=== PATIENT | male | born 1980 | race Caucasian/White ===

== ENCOUNTER 2017-02-08 08:48 | Outpatient (CLI) | payer MEDICARE ==
[2016-02-27 15:41] VITALS: BP 150/92
[2017-02-08 09:33] LABS: eGFR (African) > 60; eGFR (Non-African) > 60
--- NOTE | 2017-02-08 15:25 | Diagnostic Imaging Report ---
FRANCHESKA SANTOS [facility] [address] [facility] [address] [address] Report Submission Date: Feb 08, 2017 1:07:22 PM CDT Patient Study Name: JASON CARDENAS Date: Feb 08, 2017 9:01:00 AM CDT Modality Type: CR Gender: M Description: SPINE : 84 Institution: [facility] Physician: FRANCHESKA SANTOS Lumbar spine - three views Clinical history: Low back pain. Findings: Examination of the lumbar spine in AP, lateral and lateral coned- down views demonstrates narrowing of the L4-5 disc space with osteophyte formation consistent with degenerative disc disease. The pedicles are intact and the paravertebral soft tissues are within normal limits. There is slight posterior displacement of L4 relative to L5. The vertebrae are otherwise anatomically aligned. Impression: 1. Degenerative disc disease at L4-5 with slight posterolisthesis. 2. No fracture. Electronically signed on Feb 08, 2017 1:07:22 PM CDT by: Rogelio CASTELLON
== END 2017-02-08 08:50 ==
LOC: LAB 08:48
PROVIDERS: ATTEND Family Medicine
DX: E03.9 Hypothyroidism, unspecified (principal); E78.2 Mixed hyperlipidemia; M54.5 Low back pain
CPT/HCPCS: 36415; 72100; 80053; 80061; 84443

== ENCOUNTER 2017-04-29 11:50 | Outpatient (CLI) | payer MEDICARE ==
[2016-02-27 15:41] VITALS: BP 150/92
[~2017-04-29 11:50] MED LIST: 0.9 % SODIUM CHLORIDE PF 10 ML VIAL IJ ONE; Lidocaine 1% 5ml(IM or SUTURE)(PAIN CLINIC) ONE; TRIAMCINOLONE ACETONID 40MG/ML VIAL ONE
--- NOTE | 2017-05-02 13:58 | HISTORY AND PHYSICAL REPORT ---
REFERRING PHYSICIAN: Dr. Renetta Javier Dear Renetta: HISTORY OF PRESENT ILLNESS: I had the opportunity of seeing Yovany Denis today as an outpatient at [facility]. As you are aware, Yovany is a very nice 36-year-old white male with a long history of back pain. He says that he has had this bout of back pain for the last couple of years. The pain is now across the low back and down the left leg into the left foot. It has been getting significantly worse. He is having trouble walking and getting out of a chair. He has pain with being on his feet too long and increases over the course of the day. He had a low back injection in [place] a year ago and did give him some short- term relief. The pain returned. He said that the gentleman that he had putting the injection in had some type of problem and that it hurt him a great deal. At this point, he is markedly uncomfortable. He rates the pain as 10 over 10 on the visual analog scale and never better than 5 over 10 on the visual analog scale with the symptoms getting worse. He has had home exercises. He has not had physical therapy. He has been on nonsteroidal antiinflammatories. He has a history of bipolar disorder. His previous MRI which was done at [facility] reveals an L4-L5 retrolisthesis with disk osteophyte degenerative disk disease without severe spinal or neural foraminal stenosis. CURRENT AND PAST MEDICAL PROBLEMS: 1. Gallstones. 2. Headaches. 3. Hypothyroidism. 4. Hyperlipidemia. 5. Degenerative disk disease. 6. Bipolar disorder. 7. Hypertension. 8. Anxiety. 9. Kidney problems. 10. Depression. PAST SURGICAL HISTORY: 1. Appendectomy. 2. Tonsillectomy. CURRENT MEDICATION LIST: 1. Levothyroxine 150 mcg daily. 2. Paroxetine 40 mg b.i.d. 3. Propranolol 60 mg b.i.d. 4. Lamotrigine 200 mg b.i.d. 5. Cyclobenzaprine 10 mg every 8 hours p.r.n. 6. Diclofenac 75 mg b.i.d. 7. Ibuprofen p.r.n. ALLERGIES: Patient reports an allergy to morphine. SOCIAL HISTORY: The patient currently smokes one-half pack of cigarettes per day. He does not report alcohol use. He reports having tried recreational drugs in the past but is not currently using any. Patient has been for 6 years. He has no biological children but lives with his and her 3 children. He has his Bachelor's degree but is not currently employed. He reports disability due to his bipolar disorder. FAMILY HISTORY: Positive for heart attack and diabetes in the patient's father. Diabetes in the patient's mother. REVIEW OF SYSTEMS: Positive for weight gain, night sweats, irregular and fast heartbeats related to anxiety, shortness of breath, depression, anxiety, and headaches. Treatment for the current pain problem includes Diclofenac and ibuprofen use. The patient reports that he had some injections in his low back in [place], [place], about a year ago. He does not remember where he had those done or who did them or what kind of injections they were. He reports that they did provide some short-term pain relief. He has not had physical therapy, chiropractic manipulation, biofeedback, acupuncture, or massage therapy. PHYSICAL EXAMINATION: General: This is a well-nourished, well-developed mild to moderately obese white male in some discomfort. Vital Signs: BP: 134/74, P: 80, R: 20, oxygen saturation is 98% on room air. HEENT: Pupils are equal, round, and reactive to light and accommodation. Extraocular movements intact. No facial droop. Neck: There is full range of motion of the cervical spine. No evidence of adenopathy. Thyroid is nontender, no enlarged. Carotids are without bruits. Chest: Clear to auscultation bilaterally. Normal. Chest excursion. Heart: Regular rate and rhythm without murmur. Abdomen: Benign. Normoactive bowel sounds. Motor/sensory: Intact in the upper and lower extremities. Moves all extremities freely. Back: There is a markedly positive straight leg raise on the left, negative on the right. Strength is 5/5 and equal in the lower extremities. Dorsiflexion and plantar flexion of the feet are intact. Reflexes are 2+ and equal of the patellar tendon and Achilles tendon. ASSESSMENT: 1. Left L5 radiculitis. 2. L4-L5 retrolisthesis with subarticular narrowing. PLAN: Plan for an left L5-S1 epidural steroid injection today under fluoroscopy. cc: Dr. Renetta CASTELLON
--- NOTE | 2017-05-02 14:04 | LESI WITH FLUORO ---
OPERATIVE PROCEDURE: Left L5-S1 epidural steroid injection with fluoroscopic guidance. DESCRIPTION OF PROCEDURE: The risks and benefits were discussed with the patient including the risk of infection, bleeding, nerve injury, and headache, as well as the risks of steroid exposure causing hyperglycemia, hypertension, osteoporosis, or increased infectious risks. The patient understood these risks and agreed to proceed. Consent was obtained prior to the procedure. The patient was placed in the prone position on the fluoroscopy table with a pillow underneath the abdomen to afford anterior flexion of the lumbar spine. The low back was cleaned and a sterile drape was applied. An 18-gauge thin wall Tuohy epidural needle was advanced with normal saline loss of resistance technique and direct fluoroscopic guidance with a left paramedian approach at the L5-S1 level. On obtaining loss of resistance to normal saline, it was verified that there was no aspiration of CSF or blood. Furthermore, the needle tip location was verified with lateral and AP fluoroscopic views. Omnipaque 240 myelogram dye were injected through the epidural needle. The distribution of the dye was noted to be within the desired distribution within the lumbar epidural space. The patient did report some reproduction of the low back and / or lower extremity pain symptoms; this reproduction of symptoms was short- lived. Triamcinolone acetate and 1% lidocaine was injected into the epidural space. The stylet was replaced in the needle and the needle was removed from the back. The patient tolerated the procedure well. The back was cleaned and a bandage was applied over the injection site. The patient was monitored for 20 minutes following the procedure. during this time the vital signs remained stable and the patient experienced no adverse sequelae. The patient was discharged in good condition. ASSESSMENT: Lumbar radiculitis. PLAN: Left L5-S1 epidural steroid injection with fluoroscopic guidance today. FOLLOWUP: Return to clinic if problems develop or worsen. Dr. Javier, thank you very much for allowing me to take part in the care of this nice gentleman. I appreciate the opportunity to take part in the care of your patients. cc: Dr. Renetta CASTELLON
== END 2017-04-29 11:52 ==
LOC: OUT 11:50
PROVIDERS: ATTEND Anesthesiology Pain Medicine
DX: M54.16 Radiculopathy, lumbar region (principal)
CPT/HCPCS: G0463; J3301; Q9966; 62323; 99213

== ENCOUNTER 2017-05-10 19:48 | Emergency (ER) | payer MEDICARE ==
--- NOTE | 2017-05-10 20:08 | ED Physician Documentation ---
Lower Extremity Problem - HISTORIAN Historian: patient - HPI Chief Complaint: Lower Extremity Problem Location of Injury: L leg Onset: days ago (3 ) Timing: still present Recent Injury: No Severity: moderate Quality: pain, tenderness. denies: swelling Exacerbated By: walking Relieved By: rest Associated Symptoms: denies: chest pain, shortness of breath - ROS CONST: no problems - PAST HX Past History: none, other (depression) Surgeries/Procedures: none Immunizations: referred to PCP Allergies/Adverse Reactions: Allergies Allergy/AdvReac Type Severity Reaction Status Date / Time morphine Allergy Intermediate Rash Verified 05/10/17 20:06 Home Medications: Ambulatory Orders Medication Instructions Recorded Naproxen [Naprosyn] 500 mg PO BID #30 tablet 05/10/17 - SOCIAL HX Smoking History: less than 1 pack/day Alcohol Use: none Drug Use: none - FAMILY HX Family History: no significant history - VITAL SIGNS Vital Signs: Vital Signs Temp Pulse Resp BP Pulse Ox 150/92 02/27/16 15:38 - REVIEWED ASSESSMENTS Nursing Assessment Reviewed: Yes Vitals Reviewed: Yes Lower Extremity Problem - EXAM General Appearance: mild distress Knees: bilateral: non-tender, normal inspection, normal range of motion, no evidence of injury Ankle: right: limited range of motion, pain (with walking over achilles tendon) , soft tissue tenderness, left: non-tender, normal inspection, normal range of motion, no evidence of injury, N/A: deformity (none), ecchymosis (none), joint effusion (none) Neuro/Tendon: normal sensation, normal motor functions RESPIRATORY: no resp distress, chest non-tender. No: wheezes, rales, rhonchi NEURO/PSYCH: oriented X3, mood/affect nml SKIN: warm/dry Discharge Clincal Impression: Achilles tendonitis Qualifiers: Laterality: right Qualified Code(s): M76.61 - Achilles tendinitis, right leg Referrals: Renetta Javier MD [Primary Care Provider] - 2 Days Additional Instructions: Try not to walk any more then you need to. Take Naprosyn as directed with food. Try using heal cup. If not better follow-up with your primary care provider. Home Medications: Ambulatory Orders Naproxen [Naprosyn] 500 mg PO BID #30 tablet 05/10/17 Condition: Stable Disposition: 01 HOME, SELF-CARE Decision to Admit: NO Date of Decison to Admit: 05/10/17 Decision Time: 20:10
[2017-05-10 20:32] VITALS: BP 110/72
== END 2017-05-10 20:16 | disposition home or self-care (01) ==
LOC: ED 19:48
DX: M76.61 Achilles tendinitis, right leg (principal)
CPT/HCPCS: 99283

== ENCOUNTER 2017-05-29 13:42 | Emergency (ER) | payer MEDICARE ==
[2017-05-29] MEDS: 0.9 % SODIUM CHLORIDE 1,000 ML IV ONE (14:16)
[2017-05-29 14:20] LABS: APPEARANCE,URINE Cloudy (CLEAR); COLOR,URINE Red (YELLOW); OCCULT BLOOD,URINE 3+ (NEGATIVE); PH URINE 5.5 (5.0 - 8.0)
[2017-05-29 14:24] LABS: BASOPHILS % 1.2 (0.0-1.5); EOSINOPHILS % 5.8 % (0.0-6.8); MEAN CORPUSCULAR HEMOGLOBIN 31.9 pg (28.0-34.0); MEAN CORPUSCULAR VOLUME 92.3 fl (80.0-100.0); MONOCYTES % 7.1 % (0.0-11.0)
[2017-05-29 14:40] LABS: eGFR (African) > 60; eGFR (Non-African) > 60
--- NOTE | 2017-05-29 15:17 | Diagnostic Imaging Report ---
[facility] [address] [facility] [address] [place], [place]. [address] Report Submission Date: May 29, 2017 3:12:24 PM CDT Patient Study Name: JASON CARDENAS Date: May 29, 2017 2:34:10 PM CDT Modality Type: CT\SR Gender: M Description: CT ABD & PELVIS W/O CO : 84 Institution: [facility] Physician: YINKA MIRANDA - ER CT abdomen and pelvis without contrast CLINICAL HISTORY: PT STATES BACK PAIN THAT RADIATES TO HIS GROIN, WORSE ON LEFT SIDE, AND HEMATURIA FOR A FEW DAYS. HISTORY OF KIDNEY STONES. HISTORY OF APPENDECTOMY (Hx) TECHNIQUE: 5 mm contiguous axial images of the abdomen and pelvis non contrast. FINDINGS: There is mild atelectasis in the left lung base. Evaluation is limited without iv contrast. There is diffuse fatty infiltration of liver. There is cholelithiasis. The noncontrast adrenal glands, pancreas, spleen are unremarkable. Nonobstructing right kidney stones. There is mild left hydronephrosis and hydroureter secondary to a 3 mm distal left ureteral calculus. No bladder calculi identified. The bowel loops are nondistended. No ascites. No pneumoperitoneum. Few sigmoid diverticula without diverticulitis. IMPRESSION: 1. Mild left hydronephrosis and hydroureter secondary to a 3 mm distal left ureteral calculus. 2. Nonobstructing right kidney stones. 3. Severe hepatic steatosis. Electronically signed on May 29, 2017 3:12:24 PM CDT by: Edvin CASTELLON
--- NOTE | 2017-05-29 15:17 | ED Physician Documentation ---
General Adult - HISTORIAN Historian: patient - HPI Stated Complaint: blood in urine, L flank pain Chief Complaint: General Adult Onset: days ago (3) Timing: still present Severity: moderate Further Comments: yes (Pt is a 36 yo male with L flank pain that radiates to groin, shelli hematuria, and hx kidney stones that began 3 days ago. Pt has had intermittent waves of severe pain, but is in only mild distress at presentation. No n/v.) - ROS CONST: other (malaise) EYES/ENT: none CVS/RESP: none GI/: abdominal pain, problems urinating MS/SKIN/LYMPH: none - PAST HX Past History: other (Bipolar d/o, Thyroid d/o, chronic low back pain) Surgeries/Procedures: other (Tonsils & Adenoids) Allergies/Adverse Reactions: Allergies Allergy/AdvReac Type Severity Reaction Status Date / Time morphine Allergy Intermediate Rash Verified 05/29/17 14:01 Home Medications: Ambulatory Orders Medication Instructions Recorded Cyclobenzaprine HCl [Flexeril] 10 mg PO TID PRN 05/29/17 Lamotrigine [Lamictal] 200 mg PO BID 05/29/17 Naproxen [Naprosyn] 500 mg PO DAILY 05/29/17 - SOCIAL HX Smoking History: cigarettes Alcohol Use: none - FAMILY HX Family History: No - VITAL SIGNS Vital Signs: Vital Signs Temp Pulse Resp BP Pulse Ox 98.1 F 116 H 18 131/75 94 05/29/17 14:17 05/29/17 14:17 05/29/17 14:17 05/29/17 14:17 05/29/17 14:17 - REVIEWED ASSESSMENTS Nursing Assessment Reviewed: Yes Vitals Reviewed: Yes Progress - Progress Progress: Toradol 30 mg IV NS 1 L IVF Rocephin 1 gm IV in ER. CT abd/pelvis w/o contrast: 1. Mild left hydronephrosis and hydroureter secondary to a 3 mm distal left ureteral calculus. 2. Nonobstructing right kidney stones. 3. Severe hepatic steatosis. Pt instructions: Rx Ketorolac 10 mg. Take one every 6 hrs as needed for pain. Do not take Naproxen, Aspirin or Ibuprofen in the same dosing interval as Ketorolac. Ciprofloxacin 500 mg. Take one every 12 hrs for 7 days. Tamsulosin 0.4 mg. Take one daily for 5 days or until kidney stone passes. Zofran ODT 4 mg. Take one every 8 hrs as needed for nausea/vomiting. Follow up with primary provider about hepatic steatosis (fatty liver) seen on CT scan. ED Results Lab/Radiology - Lab Results Lab Results: Lab Results 05/29/17 05/29/17 05/29/17 14:14 14:14 14:14 WBC 9.00 K/ul K/ul (4.00-12.00) RBC 5.18 M/ul M/ul (3.90-5.20) Hgb 16.5 g/dL g/dL (12.0-18.0) Hct 47.8 % % (37.0-53.0) MCV 92.3 fl fl (80.0-100.0) MCH 31.9 pg pg (28.0-34.0) MCHC 34.5 g/dL g/dL (30.0-36.0) RDW 13.2 % % (11.3-14.3) Plt Count 235 K/mm3 K/mm3 (130-400) Neut % (Auto) 56.0 % % (39.0-79.0) Lymph % (Auto) 28.5 % % (16.0-50.0) George % (Auto) 7.1 % % (0.0-11.0) Eos % (Auto) 5.8 % % (0.0-6.8) Baso % (Auto) 1.2 (0.0-1.5) Neut # (Auto) 5.0 # k/uL # k/uL (1.4-7.7) Lymph # (Auto) 2.6 # k/uL # k/uL (0.6-4.0) George # (Auto) 0.6 # k/uL # k/uL (0.0-0.9) Eos # (Auto) 0.5 # k/uL # k/uL (0.0-0.6) Baso # (Auto) 0.1 # k/uL # k/uL (0.0-0.5) Reactive Lymphs % 1.5 % % (0.0-5.0) Reactive Lymphs # 0.1 # k/uL # k/uL (0.0-0.8) Sodium 140 mmol/L mmol/L (136-145) Potassium 3.7 mmol/L mmol/L (3.5-5.0) Chloride 106 mmol/L mmol/L (98-110) Carbon Dioxide 29 mmol/L mmol/L (20-32) BUN 22 mg/dL mg/dL (10-26) Creatinine 1.1 mg/dL mg/dL (0.4-1.5) Estimated Creat Clear 163 Est GFR ( Amer) > 60 (60 - ) Est GFR (Non-Af Amer) > 60 (60 - ) Glucose 97 mg/dL mg/dL (70-99) Calcium 10.2 mg/dL mg/dL (8.5-10.5) Total Bilirubin 0.5 mg/dL mg/dL (0.2-1.2) AST 28 U/L U/L (0-41) ALT 59 U/L H U/L (0-45) Alkaline Phosphatase 85 U/L U/L (46-116) Total Protein 7.9 g/dL g/dL (6.0-8.5) Albumin 5.2 g/dL g/dL (3.0-5.5) Amylase 33 U/L U/L (20-104) Urine Color Red (YELLOW) Urine Appearance Cloudy (CLEAR) Urine pH 5.5 (5.0 - 8.0) Ur Specific [place] 1.025 (1.010-1.030) Urine Protein 3+ mg/dL H mg/dL (NEGATIVE) Urine Ketones 1+ mg/dL H mg/dL (NEGATIVE) Urine Occult Blood 3+ H (NEGATIVE) Urine Nitrite Positive (NEGATIVE) Urine Bilirubin 2+ H (NEGATIVE) Urine Urobilinogen 2.0 Eu H Eu (0.2-1.0) Ur Leukocyte Esterase 3+ H (NEGATIVE) Urine Glucose Negative mg/dL mg/dL (NEGATIVE) - Orders Orders: ED Orders Category Date Time Status Place IV Lock 1T Care 05/29/17 13:[address] ABD & PELVIS W/O CON Stat Exams 05/29/17 Taken AMYLASE Routine Lab 05/29/17 14:14 Completed CBC/PLATELET/DIFF Routine Lab 05/29/17 14:14 Completed CMP Routine Lab 05/29/17 14:14 Completed URINALYSIS Routine Lab 05/29/17 14:14 Completed URINE CULTURE Routine Lab 05/29/17 14:14 Received 0.9 % Sodium Chloride [Normal Saline] 1,000 ml Med 05/29/17 13:59 Discontinued IV Q1H General Adult Physical Exam - PHYSICAL EXAM GENERAL APPEARANCE: moderate distress EENT: pharynx normal NECK: normal inspection, supple RESPIRATORY: no resp distress CVS: reg rate & rhythm, heart sounds normal ABDOMEN: soft, tenderness (L flank), decreased BS BACK: normal inspection, CVA tenderness (L) SKIN: warm/dry, normal color EXTREMITIES: non-tender, normal range of motion, no evidence of injury NEURO: oriented X3, motor nml, sensation nml Discharge Clincal Impression: Renal calculus or stone Referrals: Renetta Javier MD [Primary Care Provider] - Home Medications: Ambulatory Orders Cyclobenzaprine HCl [Flexeril] 10 mg PO TID PRN 05/29/17 Lamotrigine [Lamictal] 200 mg PO BID 05/29/17 Naproxen [Naprosyn] 500 mg PO DAILY 05/29/17 Condition: Stable Disposition: 01 HOME, SELF-CARE Decision to Admit: NO Decision Time: 15:43
[2017-05-29] MEDS ORDERED: KETOROLAC TROMETHAMINE 30 MG/1ML VIAL ONE (15:18)
[2017-05-29] MEDS ORDERED: 0.9 % SODIUM CHLORIDE 100 ML IV ONE (15:20)
[2017-05-29] MEDS ORDERED: cefTRIAXone SODIUM 1 GM VIAL ONE (15:20)
[2017-05-29] MEDS: KETOROLAC TROMETHAMINE 30 MG/1ML VIAL IVP ONE (15:22)
[2017-05-29] MEDS: cefTRIAXone SODIUM 1 GM in 0.9 % SODIUM CHLORIDE 50 ML IV STA (15:28)
[2017-05-29 16:12] VITALS: BP 126/74
== END 2017-05-29 16:09 | disposition home or self-care (01) ==
LOC: ED 13:42
DX: N20.0 Calculus of kidney (principal)
CPT/HCPCS: 74176; 80053; 81002; 82150; 85025; 87086; J0696; J1885; J7030; 96361; 96365; 96375; 99283; S1016

== ENCOUNTER 2017-11-21 09:32 | Emergency (ER) | payer MEDICARE ==
--- NOTE | 2017-11-21 10:03 | ED Physician Documentation ---
General Adult - HISTORIAN Historian: patient - HPI Stated Complaint: right flank pain, N/V Chief Complaint: General Adult Onset: hours Timing: still present Severity: moderate Further Comments: yes (Pt is a 37 yo male with R flank pain which awoke him from sleep this am. Pt has hx kidney stone. Pt has had n/v.) - ROS CONST: other (malaise) EYES/ENT: none CVS/RESP: none GI/: abdominal pain, vomiting, nausea MS/SKIN/LYMPH: none - PAST HX Past History: kidney stones Surgeries/Procedures: other (appendectomy, tonsillectomy) Allergies/Adverse Reactions: Allergies Allergy/AdvReac Type Severity Reaction Status Date / Time morphine Allergy Intermediate Rash Verified 11/21/17 10:14 Home Medications: Ambulatory Orders Medication Instructions Recorded Lamotrigine [Lamictal] 200 mg PO BID 05/29/17 - SOCIAL HX Smoking History: cigarettes - FAMILY HX Family History: No - VITAL SIGNS Vital Signs: Vital Signs Temp Pulse Resp BP Pulse Ox 97.5 F L 92 H 22 126/87 96 11/21/17 09:45 11/21/17 09:45 11/21/17 09:45 11/21/17 09:45 11/21/17 09:45 - REVIEWED ASSESSMENTS Nursing Assessment Reviewed: Yes Vitals Reviewed: Yes Progress - Progress Progress: CT abd/pelvis w/o contrast: Impression: 2 mm calcification at the right ureteral pelvic junction with dilation of the ureter and intrarenal collecting system proximally - obstructive uropathy. Bilateral nephrolithiasis. Fatty liver. Gallstones. No adjacent pericholecystic inflammation. No abnormal bowel dilation. Stool throughout the large bowel suggesting component of constipation. Mild left lung lingular infiltrate/scarring. No effusion. NS 1 L IVF x 2 Zofran 4 mg IV Toradol 30 mg IV Cascade (5/325) 2 tabs po d/c instructions Rx Cascade (5/325). Take one or two tablets by mouth every 4 to 6 hrs as needed for moderate to severe pain. Rx Zofran ODT 4 mg. Take one every 8 hrs as needed for nausea/vomiting. Rx Flomax 0.4 mg. Take one daily for 5 days or until kidney stone passes. Rx Bactrim DS. Take one every 12 hrs for 7 days. General Adult Physical Exam - PHYSICAL EXAM GENERAL APPEARANCE: moderate distress EENT: pharynx normal, dry mucous membranes NECK: normal inspection, supple RESPIRATORY: no resp distress, chest non-tender, breath sounds normal CVS: reg rate & rhythm, heart sounds normal ABDOMEN: soft, tenderness (R flank), decreased BS BACK: normal inspection, CVA tenderness (R) SKIN: warm/dry, normal color EXTREMITIES: non-tender, normal range of motion, no evidence of injury NEURO: oriented X3, motor nml, sensation nml Discharge Clincal Impression: Renal calculus or stone Referrals: Renetta Javier MD [Primary Care Provider] - Condition: Stable Disposition: 01 HOME, SELF-CARE Decision to Admit: NO Decision Time: 12:20
[2017-11-21] MEDS ORDERED: KETOROLAC TROMETHAMINE 30 MG/1ML VIAL IM ONE (10:04)
[2017-11-21 10:10] LABS: BASOPHILS % 1.6 (0.0-1.5); EOSINOPHILS % 5.6 % (0.0-6.8); MEAN CORPUSCULAR HEMOGLOBIN 32.4 pg (28.0-34.0); MEAN CORPUSCULAR VOLUME 92.6 fl (80.0-100.0); MONOCYTES % 4.9 % (0.0-11.0); NEUTROPHILS # 6.3 # k/uL (1.4-7.7)
[2017-11-21] MEDS: 0.9 % SODIUM CHLORIDE 1,000 ML IV ONE ×2 (10:15→11:30)
[2017-11-21] MEDS: KETOROLAC TROMETHAMINE 30 MG/1ML VIAL IVP ONE (10:15)
[2017-11-21] MEDS: ONDANSETRON HCL/PF 4 MG/ 2ML VIAL IVP ONE (10:15)
[2017-11-21 10:34] LABS: eGFR (African) > 60; eGFR (Non-African) > 60
[2017-11-21 10:34] LABS: APPEARANCE,URINE Cloudy (CLEAR); COLOR,URINE Brown (YELLOW); OCCULT BLOOD,URINE 3+ (NEGATIVE); PH URINE 5.5 (5.0 - 8.0); UROBILINOGEN URINE 0.2 Eu (0.2-1.0)
[2017-11-21 10:44] LABS: AMORPHOUS SEDIMENT,UR FEW (NEGATIVE)
[2017-11-21] MEDS: HYDROcodone /APAP 5/325 1 EACH TABLET PO ONE (11:41)
[2017-11-21] MEDS: TAMSULOSIN HCL 0.4 MG CAP.ER.24H PO ONE (11:41)
[2017-11-21 12:22] VITALS: BP 114/59
--- NOTE | 2017-11-21 13:07 | Diagnostic Imaging Report ---
YINKA MIRANDA [facility] [address] [facility] [address] [place], [place]. [address] Report Submission Date: Nov 21, 2017 11:13:55 AM MOVING CONSULTANT Patient Study Name: JASON CARDENAS Date: Nov 21, 2017 10:44:34 AM MOVING CONSULTANT Modality Type: CT\SR Gender: M Description: CT ABD & PELVIS W/O CO : 84 Institution: [facility] Physician: YINKA MIRANDA Examination: CT Abdomen/pelvis History: RIGHT SIDE FLANK PAIN, HISTORY OF KIDNEY STONE (Hx) / RIGHT FLANK PAIN , HISTORY OF KIDNEY STONE (DICOM Hx) Comparison exams: 29 May 2017 Technique: CT Abdomen/pelvis without contrast protocol. Findings: Kidneys are symmetric in size. 2 to 3 mm calyceal calcifications bilaterally. At the right ureteropelvic junction is a 2 mm calcification. Dilation of the ureter and intrarenal collecting system proximally. Remainder of the right ureter without abnormal dilation or calcification. Left ureter without abnormal dilation or calcification. Bladder margin without gross abnormality. Liver demonstrates diffuse low attenuation. Spleen, adrenals, and pancreas are without gross irregularity given exam technique. Hepatic and splenic granuloma. Large gallstones. No adjacent pericholecystic inflammation. Abdominal aorta without aneurysm. Minimal peripheral atherosclerotic disease. Cardiac silhouette not enlarged. No pericardial effusion. Bowel unopacified limiting evaluation. No mesenteric inflammatory changes or free fluid. No abnormal small bowel dilation. Stool throughout the large bowel in the sensitivity. Surgical changes in the region of the cecum. Osseous structures demonstrate degenerative changes. Lung bases demonstrate lingular scarring. Left lower lung granuloma. No posterior effusion. Impression: 2 mm calcification at the right ureteral pelvic junction with dilation of the ureter and intrarenal collecting system proximally - obstructive uropathy. Bilateral nephrolithiasis. Fatty liver. Gallstones. No adjacent pericholecystic inflammation. No abnormal bowel dilation. Stool throughout the large bowel suggesting component of constipation. Mild left lung lingular infiltrate/scarring. No effusion. Electronically signed on Nov 21, 2017 11:13:55 AM MOVING CONSULTANT by: Cristian CASTELLON
== END 2017-11-21 12:18 | disposition home or self-care (01) ==
LOC: ED 09:32
DX: K80.80 Other cholelithiasis without obstruction (principal); N20.0 Calculus of kidney; K59.00 Constipation, unspecified; K76.0 Fatty (change of) liver, not elsewhere classified
CPT/HCPCS: 74176; 80053; 81002; 83690; 85025; A9270; J1885; J2405; J7030; 96365; 96366; 96372; 96375; 99283; S1016

== ENCOUNTER 2017-12-16 12:14 | Outpatient (CLI) | payer MEDICARE ==
--- NOTE | 2017-12-16 19:04 | Diagnostic Imaging Report ---
BLANCO DALAL [facility] [address] [facility] [address] [address] Report Submission Date: Dec 16, 2017 12:41:36 PM RN CLINICAL RESOURCE Patient Study Name: JASON CARDENAS Date: Dec 16, 2017 12:21:53 PM RN CLINICAL RESOURCE Modality Type: DX Gender: M Description: LOWER EXTREMITY : 84 Institution: [facility] Physician: BLANCO DALAL Examination: Plain film right calcaneus History: RT CALCANEUS, RT HEEL PAIN X2 DAYS, NO KNOWN INJURY (Hx) Findings: 2 views of the right calcaneus demonstrates normal cortical margins. No fracture or dislocation. Posterior spur. No soft tissue swelling. No joint effusion. Impression: Calcaneal spur. No acute osseous process. If suspect plantar fasciitis or Achilles tendon inflammation, consider obtaining MRI. Electronically signed on Dec 16, 2017 12:41:36 PM RN CLINICAL RESOURCE by: Cristian CASTELLON
== END 2017-12-16 12:16 ==
LOC: RAD 12:14
PROVIDERS: ATTEND Physician Assistant
DX: M79.671 Pain in right foot (principal)
CPT/HCPCS: 73650

== ENCOUNTER 2018-05-11 19:28 | Emergency (ER) | payer MEDICARE ==
[2018-05-11] MEDS: KETOROLAC TROMETHAMINE 60 MG/2 ML VIAL IM ONE (19:50)
[2018-05-11 20:03] VITALS: BP 144/76
--- NOTE | 2018-05-11 20:03 | Diagnostic Imaging Report ---
LIZZ RAMSAY (REFINISHER) - ER [facility] [address] [facility] [address] [address] Report Submission Date: May 11, 2018 7:58:50 PM CDT Patient Study Name: JASON CARDENAS Date: May 11, 2018 7:33:41 PM CDT Modality Type: DX Gender: M Description: LOWER EXTREMITY : 84 Institution: [facility] Physician: LIZZ RAMSAY (REFINISHER) - ER 3 views left foot Clinical history: Left lateral foot pain Findings: No acute fracture dislocations identified. The alignment is normal. Soft tissues unremarkable. Impression: Negative Electronically signed on May 11, 2018 7:58:50 PM CDT by: Edvin CASTELLON
--- NOTE | 2018-05-11 20:38 | ED Physician Documentation ---
General Adult - HPI Stated Complaint: Left foot pain Chief Complaint: General Adult Onset: days ago Timing: worse Further Comments: yes (37 year old male patient presents with left foot pain, started a few days ago, progressively worse. denies injury or fall, denies history of gout.) - ROS CONST: no problems EYES/ENT: none CVS/RESP: none GI/: none MS/SKIN/LYMPH: none NEURO/PSYCH: difficulty walking (related to foot pain). denies: headache - PAST HX Past History: other (seizures) Allergies/Adverse Reactions: Allergies Allergy/AdvReac Type Severity Reaction Status Date / Time morphine Allergy Intermediate Rash Verified 05/11/18 19:37 Home Medications: Ambulatory Orders Medication Instructions Recorded Lamotrigine [Lamictal] 200 mg PO BID 05/29/17 Ketorolac Tromethamine [Toradol] 10 mg PO TID #15 tablet 05/11/18 - SOCIAL HX Smoking History: cigarettes - FAMILY HX Family History: No - VITAL SIGNS Vital Signs: Vital Signs Temp Pulse Resp BP Pulse Ox 97.2 F L 92 H 17 144/76 94 05/11/18 19:30 05/11/18 19:30 05/11/18 19:30 05/11/18 19:30 05/11/18 19:30 - REVIEWED ASSESSMENTS Nursing Assessment Reviewed: Yes Vitals Reviewed: Yes Progress - Progress Progress: Uric acid 9.4 - no history of gout. Medicated with toradol in ER; will treat with NSIAD; reviewed discharge instructions including diet and follow up. Patient verbalized understanding. ED Results Lab/Radiology - Lab Results Lab Results: Lab Results 05/11/18 20:00 Uric Acid 9.4 mg/dL H mg/dL (3.5-8.5) - Orders Orders: ED Orders Category Date Time Status FOOT 3 VIEWS OR MORE [RAD] Stat Exams 05/11/18 Completed URIC ACID Stat Lab 05/11/18 20:00 Completed Ketorolac Tromethamine [Toradol] Med 05/11/18 19:40 Discontinued 60 mg IM NOW ONE General Adult Physical Exam - PHYSICAL EXAM GENERAL APPEARANCE: mild distress EENT: eye inspection normal, JOSEFA RESPIRATORY: no resp distress CVS: reg rate & rhythm EXTREMITIES: normal range of motion, no evidence of injury, no edema, other ( left foot - pink and dry; mild hyperthermia; tender to mild palpation, c/o pain with ROM. ) NEURO: oriented X3, CN's nml as tested, motor nml, sensation nml, mood/affect nml Discharge Clincal Impression: Gout attack Qualifiers: Gout site: foot Gout etiology: unspecified cause Laterality: left Qualified Code(s): M10.9 - Gout, unspecified Prescriptions: Ketorolac Tromethamine [Toradol] 10 mg PO TID #15 tablet Referrals: Primary Doctor,No [Primary Care Provider] - 2 Days Additional Instructions: medical office supervisor your prescriptions and start them in the morning. In general, a healthy diet includes plenty of fruits, vegetables, whole grains, and low-fat dairy products. You should also limit sugary drinks and alcohol, which can make gout flares worse. Follow up with your primary care provider if no improvement after toradol. No NSAIDs such as ibuprofen, aleve or naproxen while on toradol Condition: Stable Disposition: 01 HOME, SELF-CARE Decision to Admit: NO Decision Time: 20:38
== END 2018-05-11 20:35 | disposition home or self-care (01) ==
LOC: ED 19:28
DX: M10.9 Gout, unspecified (principal)
CPT/HCPCS: 73630; 84550; J1885; 96372; 99283

== ENCOUNTER 2018-09-01 08:13 | Outpatient (CLI) | payer MEDICARE | END 2018-09-01 08:18 | disposition home or self-care (01) | LOC: LAB 08:13 | PROVIDERS: ATTEND Family Medicine | DX: E79.0 Hyperuricemia without signs of inflammatory arthritis and tophaceous disease (principal); E03.9 Hypothyroidism, unspecified | CPT/HCPCS: 36415; 84443; 84550 ==

== ENCOUNTER 2018-09-29 11:01 | Outpatient (CLI) | payer MEDICARE ==
--- NOTE | 2018-09-30 06:05 | Diagnostic Imaging Report ---
MANOHAR CEDENO [facility] [address] [facility] [address] [address] Report Submission Date: Sep 29, 2018 11:49:05 AM ELA TEACHER Patient Study Name: JASON CARDENAS Date: Sep 29, 2018 11:03:12 AM ELA TEACHER Modality Type: DX Gender: M Description: SHOULDER : 84 Institution: [facility] Physician: MANOHAR CEDENO Left shoulder History: Chronic pain Three views of the left shoulder demonstrate movement of the humeral head into internal and external rotation without evidence for acute fracture or dislocation. The AC joint is intact. Impression: No osseous abnormality. Electronically signed on Sep 29, 2018 11:49:05 AM ELA TEACHER by: Angelita CASTELLON
== END 2018-09-29 11:15 ==
LOC: RAD 11:01
PROVIDERS: ATTEND Family Medicine
DX: G89.29 Other chronic pain (principal); M25.512 Pain in left shoulder
CPT/HCPCS: 73030

== ENCOUNTER 2018-12-22 08:26 | Outpatient (CLI) | payer MEDICARE, OTHER ==
[2018-12-22 13:05] LABS: eGFR (Non-African) > 60
== END 2018-12-22 08:28 ==
LOC: LAB 08:26
PROVIDERS: ATTEND Family Medicine
DX: E03.9 Hypothyroidism, unspecified (principal)
CPT/HCPCS: 36415; 80053; 84443

== ENCOUNTER 2019-03-05 11:22 | Day surgery (SDC) | payer MEDICARE, OTHER ==
[~2019-03-05 11:22] MED LIST changes: -0.9 % SODIUM CHLORIDE PF 10 ML VIAL IJ ONE; +LACTATED RINGERS 1,000 ML IV.SOLN IV ONE; +LIDOCAINE HCL 2% PF 100MG/5ML VIAL IJ ONE; -Lidocaine 1% 5ml(IM or SUTURE)(PAIN CLINIC) ONE; +PROPOFOL 200 MG/20 ML VIAL IV ONE; -TRIAMCINOLONE ACETONID 40MG/ML VIAL ONE
--- NOTE | 2019-05-15 09:07 | GI Report ---
DATE OF PROCEDURE: 03/05/2019 REFERRING PHYSICIAN: Dr. Blair. SURGEON: Shane Mann M.D., Judith PROCEDURE PERFORMED: Endoscopy with biopsies. SURGEON: Shane Mann M.D., Judith PROCEDURE MEDICATION: Propofol, as per Anesthesia. INDICATION FOR PROCEDURE: The patient is a 38-year-old man who has had cyclic vomiting, heartburn, failure to respond. He is a cigarette and a marijuana smoker. Because of persistent vomiting, he is referred for evaluation. Medications do include: Omeprazole 40 mg daily. He is on Lamictal 200 mg b.i.d.; paroxetine 20 mg daily; diclofenac 50 mg up to t.i.d. DESCRIPTION OF PROCEDURE: The Olympus video endoscope was passed through the esophagus under direct visualization. He has grade 2 esophagitis at the GE junction. His stomach was entered. He has gastritis and gastroparesis. There is no motility noted. Biopsies were taken in the stomach for pathology. The pylorus was open. The duodenal bulb, first and second part of the duodenum was entered and were normal. The patient tolerated the procedure well. FINDINGS: 1. Gastroparesis. 2. Diffuse gastritis. 3. Reflux esophagitis. RECOMMENDATIONS: Gastroparesis diet includes 6 small meals a day, elevating the bed, being on a PPI daily. The gastroparesis is not likely to improve unless he is willing to give up both marijuana and tobacco, and would hold his nonsteroidals. SHANE MANN M.D., Judith THOMAS/aisha Job#: [id number] Cc[facility] Blair [facility]
== END 2019-03-05 14:43 ==
LOC: OPSURG 11:22
PROVIDERS: ATTEND Internal Medicine Gastroenterology
DX: G43.A0 Cyclical vomiting, in migraine, not intractable (principal); K21.0 Gastro-esophageal reflux disease with esophagitis; K29.70 Gastritis, unspecified, without bleeding; K31.84 Gastroparesis; F17.210 Nicotine dependence, cigarettes, uncomplicated; F12.90 Cannabis use, unspecified, uncomplicated
CPT/HCPCS: 43239; J2001; J2704; J7120

== ENCOUNTER 2019-09-01 07:30 | Emergency (ER) | payer MEDICARE ==
[2019-09-01 07:45] VITALS: BP 135/100
--- NOTE | 2019-09-01 07:47 | ED Physician Documentation ---
Sore Throat/Dental Pain - HISTORIAN Historian: patient - HPI Stated Complaint: left jaw pain and ear pain Chief Complaint: Dental Pain Additional Information: 39 year old male c/o left, bottom, back dental pain for couple days (has a mouth full of bad teeth- does not have good dental ins.)- also c/o left ear pain, sinus pressure, cough, and congestion. Onset: days ago Context: Fractured Tooth, Dental Caries, Possible Infection Associated Symptoms: moderate, congestion, L ear pain - ROS CONST: no problems CVS/RESP: none GI/: denies: nausea, vomiting MS/SKIN/LYMPH: denies: muscle aches NEURO/PSYCH: none - PAST HX Past History: gum disease Other History: other (Bipolar, GERd, Hypothyroid) Immunizations: UTD Allergies/Adverse Reactions: Allergies Allergy/AdvReac Type Severity Reaction Status Date / Time morphine Allergy Intermediate Rash Verified 09/01/19 07:43 Home Medications: Ambulatory Orders Medication Instructions Recorded Amoxicillin/Potassium Clav 875 each PO BID #20 tablet 09/01/19 [Augmentin 875Mg/125Mg] Naproxen [EC-Naproxen] 500 mg PO BID #20 tablet. 09/01/19 - SOCIAL HX Smoking History: greater than 1 pack/day Alcohol Use: none Drug Use: none - FAMILY HX Family History: No - VITAL SIGNS Vital Signs: Vital Signs Temp Pulse Resp BP Pulse Ox 97.2 F L 98 H 20 135/100 99 09/01/19 07:39 09/01/19 07:39 09/01/19 07:39 09/01/19 07:39 09/01/19 07:39 - REVIEWED ASSESSMENTS Nursing Assessment Reviewed: Yes Vitals Reviewed: Yes Dental Pain Physical Exam - EXAM General Appearance: alert, mild distress Head/Neck: head nml inspection, pain over sinuses, facial erythema Eyes: eyes nml inspection, PERRL, pain of sinuses Mouth/Throat: lips nml, pharynx nml, no air way problems, membranes nml, dental tenderness, gum swelling around teeth, widespread dental decay Ear/Nose: nml inspection Respiratory: breath sounds nml CVS: heart sounds nml Extremities: nml ROM Skin: warm/dry, normal color Neuro/Psych: none Discharge Clincal Impression: Acute sinus infection, Dental caries Referrals: Kaushal Blair MD [Primary Care Provider] - 2 Days Additional Instructions: Take Augmentin 875mg by mouth for dental infection and acute sinus infection Naproxen 500mg by mouth twice a day Increase water intake Follow up with Dentist GINA Condition: Good Disposition: 01 HOME, SELF-CARE Decision to Admit: NO Decision Time: 07:50
== END 2019-09-01 07:48 | disposition home or self-care (01) ==
LOC: ED 07:30
DX: J01.90 Acute sinusitis, unspecified (principal); K02.9 Dental caries, unspecified
CPT/HCPCS: 99282

== ENCOUNTER 2019-10-30 08:39 | Outpatient (CLI) | payer MEDICARE | END 2019-10-30 08:44 | LOC: LAB 08:39 | PROVIDERS: ATTEND Nurse Practitioner Family | DX: R53.83 Other fatigue (principal); R53.1 Weakness | CPT/HCPCS: 36415; 80053; 82306; 84443; 85025 ==